=== PATIENT | female | born 1985 ===

== ENCOUNTER → 2021-08-22 | Outpatient (REF) | payer OTHER ==
[2021-08-22 18:18] LABS: CREATININE, URINE 72.7 MG/DL; MALB URINE SIEMENS 7.9 MG/L; MAU/CREAT RATIO 10.8 MCG/MG (0.0-30.0)
== END ==
LOC: M LAB REF 16:55
PROVIDERS: ATTEND Internal Medicine Endocrinology, Diabetes & Metabolism
DX: E10.65 Type 1 diabetes mellitus with hyperglycemia (principal)